=== PATIENT | male | born 1940 ===

== ENCOUNTER → 2020-09-11 12:30 | Outpatient (BNVA) | payer MEDICARE, SELFPAY | PROVIDERS: Family Provider Specialist; PCP Specialist; Visit Provider Specialist | DX: I99.8 Other disorder of circulatory system (principal); G40.309 Generalized idiopathic epilepsy and epileptic syndromes, not intractable, without status epilepticus; S06.9X0S Unspecified intracranial injury without loss of consciousness, sequela; Y93.9 Activity, unspecified; R26.9 Unspecified abnormalities of gait and mobility; G24.3 Spasmodic torticollis; Z87.891 Personal history of nicotine dependence | CPT/HCPCS: 99213 ==

== ENCOUNTER → 2021-01-02 12:59 | Outpatient (BNVA) | payer MEDICARE, SELFPAY | PROVIDERS: Family Provider Specialist; PCP Specialist; Visit Provider Specialist | DX: G24.3 Spasmodic torticollis (principal); R26.9 Unspecified abnormalities of gait and mobility; S06.9X0S Unspecified intracranial injury without loss of consciousness, sequela; Y93.9 Activity, unspecified; G40.309 Generalized idiopathic epilepsy and epileptic syndromes, not intractable, without status epilepticus; Z87.891 Personal history of nicotine dependence | CPT/HCPCS: 64616; 99212; J0585 ==

== ENCOUNTER → 2021-04-10 13:15 | Outpatient (BNVA) | payer MEDICARE, SELFPAY | PROVIDERS: Family Provider Specialist; PCP Specialist; Visit Provider Specialist | DX: G24.3 Spasmodic torticollis (principal) | CPT/HCPCS: 64616; 99212; J0585 ==

== ENCOUNTER → 2022-10-09 13:58 | Outpatient (BNVA) | payer OTHER, SELFPAY | PROVIDERS: Family Provider Specialist; PCP Internal Medicine; Visit Provider Specialist | DX: G24.3 Spasmodic torticollis (principal); R26.89 Other abnormalities of gait and mobility; I69.198 Other sequelae of nontraumatic intracerebral hemorrhage; I69.193 Ataxia following nontraumatic intracerebral hemorrhage; R41.89 Other symptoms and signs involving cognitive functions and awareness | CPT/HCPCS: 64616; 99214; J0585 ==

== ENCOUNTER → 2023-01-04 11:35 | Outpatient (BNVA) | payer OTHER, SELFPAY | PROVIDERS: Family Provider Specialist; PCP Internal Medicine; Visit Provider Specialist | DX: G24.3 Spasmodic torticollis (principal); R26.89 Other abnormalities of gait and mobility; S06.9X0S Unspecified intracranial injury without loss of consciousness, sequela; G40.309 Generalized idiopathic epilepsy and epileptic syndromes, not intractable, without status epilepticus; X58.XXXS Exposure to other specified factors, sequela | CPT/HCPCS: 64616; J0585 ==

== ENCOUNTER → 2023-04-08 10:16 | Outpatient (BNVA) | payer OTHER, SELFPAY | PROVIDERS: Family Provider Specialist; PCP Internal Medicine; Visit Provider Specialist | DX: G24.3 Spasmodic torticollis (principal); S06.9X0S Unspecified intracranial injury without loss of consciousness, sequela; G40.309 Generalized idiopathic epilepsy and epileptic syndromes, not intractable, without status epilepticus; R26.89 Other abnormalities of gait and mobility; X58.XXXS Exposure to other specified factors, sequela | CPT/HCPCS: 64616; J0585 ==

== ENCOUNTER → 2023-07-29 14:19 | Outpatient (BNVA) | payer OTHER, SELFPAY | PROVIDERS: Family Provider Specialist; PCP Internal Medicine; Visit Provider Specialist | DX: G24.3 Spasmodic torticollis (principal) | CPT/HCPCS: 64616; J0585 ==